=== PATIENT | female | born 1975 | race Caucasian/White ===

== ENCOUNTER 2023-07-15 08:26 | Outpatient (AMB) | payer BC, SELFPAY ==
[2023-07-15 08:41] VITALS: BP 126/70; PULSE 116; TEMP 36.6; O2SAT 98; BMI 27.1
--- NOTE | 2023-07-15 08:41 | AM.OFFWIN_ITS ---
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 Reports putting weight on it hurts the most. 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 [facility] Medical History (Updated 07/15/23 @ 09:18 by Anny Dubon NP) Left ankle pain Social History Patient Tobacco Use Status: Never used Tobacco Physical Exam Vital Signs: Last Vital Signs Temp 97.9 F 07/15/23 08:41 Pulse 116 H 07/15/23 08:41 BP 126/70 07/15/23 08:41 Pulse Ox 98 07/15/23 08:41 Oxygen Delivery Method Room Air 07/15/23 08:41 BMI result Body Mass Index 27.1 Const General: comfortable and no acute distress Orientation/consciousness: patient oriented x3 Neuro General: patient oriented x3, gait normal and moves all extremities Extrem Right lower extremity: normal to inspection Left lower extremity: full ROM and ankle Details: normal to inspection, no edema and normal ROM; no tenderness, no swelling and no ecchymosis; no edema Assessment & Plan Assessment & Plan (1) Left ankle pain: Code(s): M25.572 - Pain in left ankle and joints of left foot Plan - Xray of Ankle - Acetaminophen for pain relief. - IceHot - Rest Medications: New ibuprofen 600 mg PO Q6H PRN 20 tabs 0RF pain M25.572 - Pain in left ankle and joints of left foot cyclobenzaprine 10 mg PO BEDTIME 14 tabs 0RF M25.572 - Pain in left ankle and joints of left foot Coding Level of Care Code Est Pt Level 4 (02967) Diagnoses Left ankle pain M25.572 Time Spent (min) 20
== END 2023-07-15 09:30 | disposition home or self-care (01) ==
PROVIDERS: PCP Internal Medicine; Visit Provider Nurse Practitioner Family
DX: M25.572 Pain in left ankle and joints of left foot (principal)
CPT/HCPCS: 99214

== ENCOUNTER 2023-07-15 09:02 | Outpatient (REF) | payer BC, SELFPAY ==
--- NOTE | ~2023-07-15 | XR_ITS ---
EXAMINATION: XR ANKLE, LEFT CLINICAL INFORMATION: History of unspecified muscle and tendon and ankle and foot COMPARISON: None available. TECHNIQUE: AP, lateral, and mortise views of the left ankle. FINDINGS: No fracture. Alignment is anatomic. No erosions. Joint spaces are maintained. Large posterior plantar calcaneal spur. XR/XR ankle LT min 3V IMPRESSION: No acute bony abnormality. Large posterior plantar calcaneal spur.
== END 2023-07-15 09:03 | disposition home or self-care (01) ==
LOC: HO.HMGCX 09:02
PROVIDERS: PCP Internal Medicine; Visit Provider Nurse Practitioner Family
DX: S96.912A Strain of unspecified muscle and tendon at ankle and foot level, left foot, initial encounter (principal)
CPT/HCPCS: 73610

== ENCOUNTER 2024-05-04 09:42 | Emergency (ER) | payer BC, SELFPAY ==
--- NOTE | 2024-05-04 | ECG_ITS ---
Test Reason : CP Blood Pressure : */* mmHG Vent. Rate : 142 BPM Atrial Rate : 142 BPM P-R Int : 128 ms QRS Dur : 72 ms QT Int : 270 ms P-R-T Axes : 53 51 16 degrees QTcB Int : 415 ms Sinus tachycardia Nonspecific ST abnormality Abnormal ECG No previous ECGs available Referred By: Generic ED Physician Electronically Signed By: Hill Elliott
--- NOTE | ~2024-05-04 | XR_ITS ---
EXAMINATION: XR CHEST CLINICAL INFORMATION: chest pain COMPARISON: None available. TECHNIQUE: 2 views of the chest were obtained. FINDINGS: No consolidation, pleural effusion or pneumothorax. Cardiomediastinal silhouette is normal in size. Osseous structures are intact. XR/XR chest 2V IMPRESSION: No acute airspace disease. Normal x-ray. Electronically signed by: Negrito Carrion MD 05/04/2024 10:56 AM [facility]
[2024-05-04 09:56] VITALS: BP 164/117; PULSE 145; RESP 22; TEMP 36.1; O2SAT 97; BMI 28.5
[2024-05-04 10:43] LABS: Prothrombin Time 11.6 SEC (10.9-12.4)
[2024-05-04 10:45] LABS: Partial Thromboplastin Time 34.5 SEC (26.0-36.8)
[2024-05-04 11:00] LABS: Alanine Aminotransferase 28 U/L (0-31); Albumin Level 4.9 g/dL (3.5-5.0); Alkaline Phosphatase 65 U/L (39-117); Anion Gap 15 (12-20); Aspartate Amino Transferase 24 U/L (5-31); B Type Natriuretic Peptide < 10 pg/mL (<100); Bilirubin Total 0.3 mg/dL (0.0-1.0); Blood Urea Nitrogen 12 mg/dL (9-16); Carbon Dioxide 25 mmol/L (22-29); Chloride 106 mmol/L (96-108); Creatinine Clr Calc Pharmacy 71.6; Estimated Glomerular Filt Rate > 60; Glucose Random 127 mg/dL (60-115); Magnesium 1.8 mg/dL (1.6-2.6); Potassium 3.8 mmol/L (3.3-5.1); Sodium 142 mmol/L (135-145); Total Protein 8.5 g/dL (6.5-8.0)
[2024-05-04 11:05] LABS: Troponin-I High Sensitivity < 2.7 ng/L (<3.5-17.0)
--- NOTE | 2024-05-04 11:06 | ED.CHESTPAIN ---
HPI - Chest Pain General Chief Complaint: Chest Pain Stated Complaint: Chest burning, elevated heart rate Time Seen by Provider: 05/04/24 11:04 Source: patient, RN notes reviewed and old records reviewed Mode of arrival: ambulatory Limitations: no limitations History of Present Illness ED Provider: Alistair HPI narrative: 48-year-old female with past medical history significant for celiac disease presents for evaluation of palpitations. Patient reports that she has felt a burning in her chest for the last couple of days She thought it was related to heartburn as she has a history of this However today she reports that she went out to [facility] and her smart watch told her that her heart rate was fast. On arrival to the ED her heart rate was 146 She reports a mild burning sensation in her chest but otherwise denies any pain. She denies any shortness of breath Denies any leg swelling, history of blood clots, or recent travel No other complaints or concerns at this time Related Data Previous Rx's ?Medication ?Instructions ?Recorded cyclobenzaprine 10 mg tablet 10 mg PO BEDTIME #14 tabs 07/15/23 ibuprofen 600 mg tablet 600 mg PO Q6H PRN pain #20 tabs 07/15/23 carvedilol 6.25 mg tablet (Coreg) 6.25 mg PO Q12H #60 tabs 05/04/24 Allergies Allergy/AdvReac Type Severity Reaction Status Date / Time Penicillins Allergy Mild rash Verified 05/04/24 09:59 Sulfa (Sulfonamide Allergy Mild stomach Verified 05/04/24 09:59 Antibiotics) buring Review of Systems Constitutional: Constitutional: Denies body ache(s), Denies chills, Denies fatigue, Denies fever(s) and Denies headache(s) ENT: Denies headache(s) Cardiovascular: Cardiovascular: Denies rapid heart rate, Denies palpitations and Denies dyspnea Comments: burning sensation in chest Respiratory: Respiratory: Denies cough and Denies dyspnea Gastrointestinal: Gastrointestinal: Denies abdominal pain Neurologic: Denies headache(s) Endocrine: Endocrine: Denies fatigue and Denies palpitations [facility] Past Medical History Medical History (Updated 05/04/24 @ 11:56 by Anthony Sainz) Left ankle pain Social History Social History Patient Tobacco Use Status: Never used Tobacco Smoked in Last 30 Days: No Use of substances other than those prescribed or required for medical reasons: No Advance Directives: No Advance Directives Information Provided: Yes Do you have a plan to hurt others: No Plan Physical Exam Vital Signs: Vital Signs: Last Vital Signs Temp 98.5 F 05/04/24 12:05 Pulse 129 H 05/04/24 12:11 Resp 17 05/04/24 12:11 BP 170/105 H 05/04/24 12:11 Pulse Ox 97 05/04/24 12:11 O2 Del Method Room Air 05/04/24 12:11 BMI result Body Mass Index 28.5 Const: General: healthy appearing, comfortable, no acute distress, alert and awake Nutritional Appearance: well nourished Orientation/consciousness: patient oriented x3 HEENT: Head: Yes normocephalic and Yes atraumatic Neck: Neck: Yes full ROM Resp: Effort & Inspection: normal respiratory effort, able to speak in complete sentences, no audible wheezes and not labored Auscultation: clear to auscultation bilaterally Cardio: Rate: tachycardic Rhythm: regular rhythm GI: Inspection: No distended Palpation (GI): Soft to palpation, not firm, nontender, no guarding and not rigid Skin: General skin exam: elasticity normal Neuro: General: patient oriented x3 Cranial nerves: Yes Bilaterally intact EOM present Cognition (Neuro): normal cognition Course Reevaluation(s) Reevaluation #1: Patient's labs are relatively unremarkable, she did have a mild hemoconcentration but no evidence of CHRISSY. Her heart rate did improve with IV fluids. I discussed with Cardiology, Dr Elliott your meds Coreg 6.25 mg b.i.d.. Time: 13:31 Reevaluation #2: Patient's repeat blood pressure is 147/97 after treatment with Coreg. She is stable for discharge at this time Time: 15:03 Medications Administered Discontinued Medications Generic Name Dose Route Start Last Admin Trade Name Freq PRN Reason Stop Dose Admin Carvedilol 6.25 mg 05/04/24 13:29 05/04/24 13:56 Carvedilol 6.25 Mg Tablet PO 05/04/24 13:30 6.25 mg ONCE ONE Administration Protocol Sodium Chloride 1,000 mls @ 999 mls/hr 05/04/24 11:15 05/04/24 12:29 Ns IV 05/04/24 12:15 Infused .Q1H1M MARK Infusion Medical Decision Making Medical Decision Making [facility] Narrative: 40 old female presents for evaluation of palpitations with a burning sensation her chest. Her EKG showed Sinus tachycardia rate of 142 beats minute. Despite her tachycardia, the patient appears quite well. She denies any severe chest pain, shortness of breath. Plan for basic labs, we will add a D-dimer to evaluate for PE, TSH and T4 to evaluate for hyperthyroidism. The patient has no signs of infections to suggest sepsis. She was not appear to be dry or dehydrated. Drug screen is pending. We will treat with IV fluids Differential Diagnosis Differential Diagnoses: The differential diagnosis associated with the presentation includes Dehydration CHRISSY Hypovolemia Orthostasis PE Hyperthyroidism Lab Data [facility] Lab Attestation statement: I reviewed the patient's lab results. No leukocytosis or anemia. Normal platelet count. Random glucose of 127 but the patient is not a diabetic. 05/04/24 10:15 05/04/24 10:15 Labs: Lab Results 05/04/24 05/04/24 05/04/24 Range/Units 10:15 10:16 10:20 WBC 9.6 (4.8-10.8) X10*3/uL RBC 5.58 H (4.20-5.50) X10*6/uL Hgb 16.3 H (12.0-16.0) g/dl Hct 48.6 H (37.0-47.0) % MCV 87.1 (80.0-98.0) fL MCH 29.2 (27.0-33.0) pg MCHC 33.5 (31.0-35.0) g/dl RDW 12.3 (11.0-16.0) % Plt Count 262 (160-400) X10*3/uL MPV 11.7 (9.4-12.3) fL Immature Gran % (Auto) 0.3 (0.0-0.4) % Neut % (Auto) 76.3 H (45-73) % Lymph % (Auto) 18.8 L (20-40) % Sharkey % (Auto) 3.1 (2-11) % Eos % (Auto) 0.6 (0-4) % Baso % (Auto) 0.9 (0-2) % Lymph # (Auto) 1.8 (1.2-4.9) X10*3/uL Sharkey # (Auto) 0.3 (0.1-1.2) X10*3/uL Eos # (Auto) 0.1 (0.0-0.4) X10*3/uL Baso # (Auto) 0.1 (0.0-0.2) X10*3/uL Abs Immat Gran (auto) 0.03 (0.00-0.03) X10*3/uL Absolute Neuts (auto) 7.3 (2.0-8.3) x10*3/uL Absolute Nucleated RBC 0.000 (0.0-0.012) X10*3/uL Nucleated RBC % (auto) 0.0 (0.0-0.2) /100WBC PT 11.6 (10.9-12.4) SEC INR 1.0 (0.9-1.1) APTT 34.5 (26.0-36.8) SEC D-Dimer High Sensitivty < 150 NG/ML Sodium 142 (135-145) mmol/L Potassium 3.8 (3.3-5.1) mmol/L Chloride 106 (96-108) mmol/L Carbon Dioxide 25 (22-29) mmol/L Anion Gap 15 (12-20) BUN 12 (9-16) mg/dL Creatinine 0.92 (0.5-1.4) mg/dL Estim Creat Clear Calc 71.6 Estimated GFR > 60 Random Glucose 127 H (60-115) mg/dL Calcium 10.0 (8.4-10.2) mg/dL Magnesium 1.8 (1.6-2.6) mg/dL Total Bilirubin 0.3 (0.0-1.0) mg/dL AST 24 (5-31) U/L ALT 28 (0-31) U/L Alkaline Phosphatase 65 (39-117) U/L Troponin I High Sens < 2.7 (<3.5-17.0) ng/L B-Natriuretic Peptide < 10 (<100) pg/mL Total Protein 8.5 H (6.5-8.0) g/dL Albumin 4.9 (3.5-5.0) g/dL TSH 1.32 (0.32-4.0) uIU/mL Urine Opiates Screen (Not Detect) Ur Buprenorphine Scrn (Not Detect) ng/mL Ur Oxycodone Screen (Not Detect) ng/mL Urine Methadone Screen (Not Detect) ng/mL Urine Fentanyl Screen (Not Detect) Ur Barbiturates Screen (Not Detect) Ur Phencyclidine Scrn (Not Detect) Ur Amphetamines Screen (Not Detect) U Benzodiazepines Scrn (Not Detect) Urine Cocaine Screen (Not Detect) U Marijuana (THC) Screen (Not Detect) Influenza Type A (PCR) NEGATIVE (Negative) Influenza Type B (PCR) NEGATIVE (Negative) RSV RNA Qual (PCR) NEGATIVE (Negative) SARS-CoV-2 RNA (RT-PCR) NEGATIVE (Negative) 05/04/24 Range/Units 12:11 WBC (4.8-10.8) X10*3/uL RBC (4.20-5.50) X10*6/uL Hgb (12.0-16.0) g/dl Hct (37.0-47.0) % MCV (80.0-98.0) fL MCH (27.0-33.0) pg MCHC (31.0-35.0) g/dl RDW (11.0-16.0) % Plt Count (160-400) X10*3/uL MPV (9.4-12.3) fL Immature Gran % (Auto) (0.0-0.4) % Neut % (Auto) (45-73) % Lymph % (Auto) (20-40) % Sharkey % (Auto) (2-11) % Eos % (Auto) (0-4) % Baso % (Auto) (0-2) % Lymph # (Auto) (1.2-4.9) X10*3/uL Sharkey # (Auto) (0.1-1.2) X10*3/uL Eos # (Auto) (0.0-0.4) X10*3/uL Baso # (Auto) (0.0-0.2) X10*3/uL Abs Immat Gran (auto) (0.00-0.03) X10*3/uL Absolute Neuts (auto) (2.0-8.3) x10*3/uL Absolute Nucleated RBC (0.0-0.012) X10*3/uL Nucleated RBC % (auto) (0.0-0.2) /100WBC PT (10.9-12.4) SEC INR (0.9-1.1) APTT (26.0-36.8) SEC D-Dimer High Sensitivty NG/ML Sodium (135-145) mmol/L Potassium (3.3-5.1) mmol/L Chloride (96-108) mmol/L Carbon Dioxide (22-29) mmol/L Anion Gap (12-20) BUN (9-16) mg/dL Creatinine (0.5-1.4) mg/dL Estim Creat Clear Calc Estimated GFR Random Glucose (60-115) mg/dL Calcium (8.4-10.2) mg/dL Magnesium (1.6-2.6) mg/dL Total Bilirubin (0.0-1.0) mg/dL AST (5-31) U/L ALT (0-31) U/L Alkaline Phosphatase (39-117) U/L Troponin I High Sens (<3.5-17.0) ng/L B-Natriuretic Peptide (<100) pg/mL Total Protein (6.5-8.0) g/dL Albumin (3.5-5.0) g/dL TSH (0.32-4.0) uIU/mL Urine Opiates Screen Not Detected (Not Detect) Ur Buprenorphine Scrn Not Detected (Not Detect) ng/mL Ur Oxycodone Screen Not Detected (Not Detect) ng/mL Urine Methadone Screen Not Detected (Not Detect) ng/mL Urine Fentanyl Screen Not Detected (Not Detect) Ur Barbiturates Screen Not Detected (Not Detect) Ur Phencyclidine Scrn Not Detected (Not Detect) Ur Amphetamines Screen Not Detected (Not Detect) U Benzodiazepines Scrn Not Detected (Not Detect) Urine Cocaine Screen Not Detected (Not Detect) U Marijuana (THC) Screen POSITIVE H (Not Detect) Influenza Type A (PCR) (Negative) Influenza Type B (PCR) (Negative) RSV RNA Qual (PCR) (Negative) SARS-CoV-2 RNA (RT-PCR) (Negative) Independent Interpretation I performed an independent interpretation of an: EKG (Sinus tachycardia rate of 142 beats minute.) Discharge Plan Discharge Clinical Impression: Sinus tachycardia Patient Disposition: Home, Self-Care Instructions: Tachycardia (ED) Additional Instructions: Your workup in the ER today was reassuring. Your heart rate was quite high but was considered a ?regular rhythm. Cardiology recommends that you start Coreg 6.25 mg b.i.d. You should discontinue this medication if your heart rate is lower than 60 while you are awake, if you are dizzy or lightheaded Follow-up with cardiology at the number provided, Dr. Elliott Prescriptions: New carvedilol [Coreg] 6.25 mg tablet 6.25 mg PO Q12H Qty: 60 0RF Rx Instructions: must administer with a meal/food No Action ibuprofen 600 mg tablet 600 mg PO Q6H PRN (Reason: pain) Qty: 20 0RF cyclobenzaprine 10 mg tablet 10 mg PO BEDTIME Qty: 14 0RF Referrals: Hill Elliott MD [Physician] - (sinus tachycardia) Print Language: Luxembourgish
[2024-05-04 11:14] LABS: Thyroid Stimulating Hormone 1.32 uIU/mL (0.32-4.0)
[2024-05-04 11:15] LABS: Influenza A PCR NEGATIVE (Negative); Influenza B PCR NEGATIVE (Negative); Resp Syncy Virus RNA Qual PCR NEGATIVE (Negative); SARS COV2 PCR INHOUSE NEGATIVE (Negative)
[2024-05-04] MEDS: 0.9 % Sodium Chloride 1,000 ML 999 ML IV (11:25)
[2024-05-04 11:34] LABS: D Dimer High Sensitivity < 150 NG/ML
[2024-05-04 12:05] VITALS: BP 185/104; PULSE 131; RESP 18; TEMP 36.9; O2SAT 98
--- OUTSIDE RECORDS SUMMARY | 2024-05-04 12:07 | XMS_ITS | Clinical Summary ---
Author Organization [facility] [address] [facility] Address [address], [place] Phone Care Team Providers Care Manager Music Name Role Phone Claus Khan MD Primary Care Provider [phone] Allergies Active Allergy Reactions Criticality Noted Date Comments Gluten 05/03/2016 Levofloxacin 09/16/2015 Other Reaction(s): Rash/Dermatitis Penicillins 02/09/2014 Other Reaction(s): Rash/Dermatitis Sulfa (Sulfonamide Antibiotics) GI intolerance 02/09/2014 Medications Medication Sig Dispensed Refills Start Date End Date Status pantoprazole (PROTONIX) 40 mg packet Take 40 mg by mouth daily. Take in am on empty stomach, wait 30 mins and then eat to activate the medication 06/28/2020 Active cetirizine (ZyrTEC) 10 mg tablet Take 10 mg by mouth daily. Active omeprazole magnesium (PRILOSEC OTC ORAL) Take by mouth. A ctive Active Problems Problem Noted Date Diagnosed Date Atypical chest pain 02/25/2024 Change in bowel habits 02/25/2024 GERD (gastroesophageal reflux disease) 4 Stress 02/25/2024 Gastroesophageal reflux disease without esophagi tis 12/29/2018 BRCA2 positive 03/21/2016 Anxiety 03/13/2014 Celiac sprue 02/09/2014 Encounters Date Type Department Care Team Description 05/04/2024 Telephone Adult Medicine [facility] [address] [place] [id number] Claus Khan MD Rapid Heart Rate from Last 3 Months Immunizations Name Administration Dates Next Due Moderna SARS-CoV-2 COVID-19, mRNA, LNP-S, preservative free 06/14/2020,05/16/2020 Tdap Tetanus diptheria acell ular pertussis (Boostrix; Adacel) 7yo and older 05/26/2010 Surgical History Surgery Date Site/Laterality Comments OTHER SURGICAL HISTORY 1999 PROCEDURE: [place] EXC TUMOR SOFT TISS FACE&SCALP SUBFASCIAL 2 CM/>; COMMENT: left protestant, benign facial tumor ESOPHAGOGASTRODUODENOSCOPY PROCEDURE: [place] EGD TRANSORAL BIOPSY SINGLE/MULTIPLE; COMMENT: Performed in 2016 with colonoscopy COLONOSCOPY PROCEDURE: HISTORICAL COLONOSCOPY; COMMENT: Performed with EGD in 2017 Medical History Medical History Date Comments Celiac sprue 02/09/2014 DX:Celiac sprue Anxiety 03/13/2014 DX:Anxiety History of colonoscopy 05/30/2016 DX:Histor y of colonoscopy; COMMENT: negative GERD (gastroesophageal reflux disease) DX:GERD (gastroesophageal reflux disease) Atypical chest pain DX:Atypical chest pain Stress DX:Stress Change in bowel habits DX:Change in bowel habits Family History Medical History Relation Name Comments Diabetes Brother No Known Problems Daughter Diabetes Father CABG, kidney di sease Stroke Maternal Grandfather No Known Problems Maternal Grandmother Colon polyps Mother ? cumulative to anisha/age at dx No Known Problems Other Colon cancer Paternal Grandfather No Known Problems Paternal Grandmother Other: lupus Sister 1 Diabetes Sister 2 11 colon polyps at 47 Colon polyps Sister 3 #14, precancero us Breast cancer Neg Hx Ovarian cancer Neg Hx Relation Name Status Comments Brother Daughter Father Maternal Grandfather Maternal Grandmother Mother Other Paternal Grandfather Paternal Grandmother Sister 1 Sister 2 Sister 3 Social History Tobacco Use Types Packs/Day Years Used Date Smoking Tobacco: Former Cigarettes 0.5 28.6 0 04/01/1987 - 10/31/2015 Smokeless Tobacco: Never Alcohol Use Standard Drinks/Week Comments Yes 0 (1 standard drink = 0.6 oz pur e alcohol) Sex and Gender Information Value Date Recorded Sex Assigned at Female 04/16/2024 1:13 PM EST Gender Identity Female 04/16/2024 1:13 PM EST Sexual Orientation Lesbian or Miller 04/16/2024 1: 13 PM EST Obstetrics History Plan of Treatment Upcoming Encounters Date Type Department Care Team (Late st Contact Info) Description 06/25/2024 7:40 AM EDT Appointment Radiology Department [address] [phone] Health Maintenance Due Date Last Done Comments Hepatitis B Vaccines (1 of 3 - 19+ 3-dose series) 1994 Cervical Cancer Screening: Pap Smear 11/28/2018 11/29/2015, 11/29/2015 DTaP,Tdap,and Td Vaccines (2 - Td or Tdap) 05/26/2020 05/26/2010 Colorectal Cancer Screening: Colonoscopy 03/10/2022 Depression Screening 03/10/2022 HIV Screening 03/10/2022 Hepatitis C Screening 03/10/2022 Social Influencers of Health Screening 03/10/2022 COVID-19 Vaccine ( season) 2023 06/14/2020, 05/16/2020 Influenza Vaccine (#1) 2023 Breast Cancer Screening 06/12/2025 06/13/19, 06/11/2022, 03/27/2021, Additional history exists HIB Vaccines Aged Out No longer eligi ble based on patient's age to complete this topic HPV Vaccines Aged Out No longer eligi ble based on patient's age to complete this topic Hepatitis A Vaccines Aged Out No long er eligible based on patient's age to complete this topic IPV Vaccines Aged Out No longer eligi ble based on patient's age to complete this topic MMR Vaccines Aged Out No longer eligi ble based on patient's age to complete this topic Meningococcal ACWY Vaccine Aged Out N o longer eligible based on patient's age to complete this topic Pneumococcal Vaccine: Pediatrics (0 to 5 Years) and At-Risk Patients (6 to 64 Years) Aged Out No longer eligible based on patient's age to complete this topic RSV Immunization Patients Under 20 months Aged Out No longer eligible based on patient's age to complete this topic Varicella Vaccines Aged Out No longer eligible based on patient's age to complete this topic Procedures Procedure Name Priority Date/Time Associated Diagnosis Comments SCREENING MAMMOGRAPHY BI 2-VIEW BREAST INC CAD Routine 06/13/2023 4:54 PM EDT Encounter for screening mammogram for malignant neoplasm of breast HM HPV Routine 11/29/2015 from Last 3 Months or Most Recently Relevant to Health Maintenance Results * SCREENING MAMMOGRAPHY BI 2-VIEW BREAST INC CAD (06/13/2023 4:54 PM EDT) Anatomical Region Laterality Modality Radiographic Chelsea ging 06/11/2022 4:53 PM EDT Narrative 06/14/2023 11:02 AM EDT This is a summary report. The complete report is available in the patient's medical record. If you cannot access the medical record, please contact the sending organization for a detailed fax or copy. Full field digital screening tomosynthesis mammography, reviewed with CAD and compared to previous mammograms dating back to 03/05/2019 and most recent of 06/12/1999. The breast tissue is heterogeneously dense, limiting sensitivity. No suspicious mass, architectural distortion or suspicious calcifications are identified. IMPRESSION: : Dense breast tissue, limiting the sensitivity of mammography. No mammographic evidence of malignancy. BIRADS 1-Negative; N. 5 year breast cancer risk assessment N/A Lifetime breast cancer risk assessment N/A Breast cancer risk category Low (<15%) Procedure Note Digna Vargas MD - 11/18/2023 This is a summary report. The complete report is available in thepatient's medical record. If you cannot access the medical record, pleasecontact the sending organization for a detailed fax or copy. Full field digital screening tomosynthesis mammography, reviewed with CADand compared to previous mammograms dating back to 03/05/2019 and mostrecent of 06/12/1999. The breast tissue is heterogeneously dense, limitingsensitivity. No suspicious mass, architectural distortion or suspiciouscalcifications are identified. IMPRESSION: : Dense breast tissue, limiting the sensitivity of mammography. Nomammographic evidence of malignancy. BIRADS 1-Negative; N. 5 year breast cancer risk assessment N/A Lifetime breast cancer risk assessment N/A Breast cancer risk category Low (<15%) Claus Khan MD IMG XR PROCEDURES * Cervical Cancer Screening: HPV (11/29/2015) Cervical Cancer Screening: HPV Negative, Abstracted Historical Provider MD BHAVIK Ramirez from Last 3 Months or Most Recently Relevant to Health Maintenance Care Teams Manager Music Relationship Specialty Start Date End Date Claus Khan MD [address] [place] [id number] PCP - General Internal Medicine 02/03/14
--- OUTSIDE RECORDS SUMMARY | 2024-05-04 12:07 | XMS_ITS | Encounter Summary ---
Author Organization [facility] Address [address] [place] [address] Care Team Providers Care Hearing Aid Assembly Supervisor Name Role Phone Claus Khan MD Primary Care Provider [phone] Reason for Visit * Reason Onset Date Comments Rapid Heart Rate 05/04/2024 Encounter Details Date Type Department Care Team ([facility] Contact Info) Description 05/04/2024 Telephone Adult Medicine [address] [phone] Claus Khan MD [address] [place] [id number] Rapid Heart Rate Social History Tobacco Use Types Packs/Day Years [...] or Miller 04/16/2024 1: 13 PM EST documented as of this encounter Progress Notes * Henna Cramer RN - 05/04/2024 9:20 AM EST Pt reports increased HR (130's). + CP - Pt reports burning in her chest. Pt advised to go to the ED [facility]. Pt verbalized understanding and agreed with plan. * Anny Clarke - 05/04/2024 9:16 AM EST Patient call requires triage: Symptoms patient is presenting: c/o tachycardia at 130 bpm 1.5 hrs after shoveling How long has patient had these symptoms?: 1.5 hrs For ALL patients calling to schedule any appointment (routine, sick visit, follow up, consult, etc.) in the outpatient setting please ask the following questions: Do you have fever of higher than 101, sore throat with difficulty swallowing or severe shortness ofbreath? no If YES to any of these above symptoms, send a message to triage and do not book. Red dot. If no, an audio or video visit should be booked. Have you had close contact with someone with Coronavirus in the last 14 days? no Have you traveled abroad? no Have you traveled recently to another state outside of [place], [place], [place], [place], [place], [place], [place]? no o If yes, did you quarantine for 14 days or have a negative covid test? no If yes to any of the above, patient is not to be scheduled in office until after 14 day quarantine or negative covid test. If pain or injury related was it due to an accident at work or from a motor vehicle accident? If yes, date of accident/Injury: No If yes, gather 3rd alliance party insurance information Third Democrat Information: not applicable PCP: Claus Khan MD Payor: [facility] / Plan: [facility] H[facility] / Product Type: *No Product type* / documented in this encounter Plan of Treatment Upcoming Encounters Date Type Department Care Team (Late st Contact Info) Description 06/25/2024 7:40 AM EDT Appointment Radiology Department - [address] [phone] documented as of this encounter Visit Diagnoses Not on filedocumented in this encounter Care Teams Hearing Aid Assembly Supervisor Relationship Specialty Start Date End Date Claus Khan MD [address] [place] [id number] PCP - General Internal Medicine 02/03/14 documented as of this encounter
[2024-05-04 12:10] VITALS: BP 165/94; PULSE 129; RESP 17
[2024-05-04 12:11] VITALS: BP 170/105; PULSE 129; RESP 17; O2SAT 97
[2024-05-04 12:27] LABS: Amphetamine Screen Urine Not Detected (Not Detect); Barbiturates, Urine Not Detected (Not Detect); Benzodiazepines Screen Urine Not Detected (Not Detect); Buprenorphine Scr Not Detected (Not Detect); Cannabinoid Screen Urine POSITIVE (Not Detect); Cocaine Screen Urine Not Detected (Not Detect); Fentanyl, urine Not Detected (Not Detect); Methadone Screen, Urine Not Detected (Not Detect); Opiate Screen Urine Not Detected (Not Detect); Oxycodone Screen Urine Not Detected (Not Detect); Phencyclidine Screen Urine Not Detected (Not Detect)
[2024-05-04 13:08] LABS: Basophils Absolute Auto 0.1 X10*3/uL (0.0-0.2); Basophils Percent Auto 0.9 % (0-2); Eosinophils Absolute Auto 0.1 X10*3/uL (0.0-0.4); Eosinophils Percent Auto 0.6 % (0-4); Hematocrit 48.6 % (37.0-47.0); Hemoglobin 16.3 g/dl (12.0-16.0); Imm Gran Abs Auto 0.03 X10*3/uL (0.00-0.03); Imm Gran Pct Auto 0.3 % (0.0-0.4); Lymphocytes Absolute Auto 1.8 X10*3/uL (1.2-4.9); Lymphocytes Percent Auto 18.8 % (20-40); MANUAL DIFF FLAG NO; Mean Corpuscular HGB Conc 33.5 g/dl (31.0-35.0); Mean Corpuscular Hemoglobin 29.2 pg (27.0-33.0); Mean Corpuscular Volume 87.1 fL (80.0-98.0); Mean Platelet Volume 11.7 fL (9.4-12.3); Monocytes Absolute Auto 0.3 X10*3/uL (0.1-1.2); Monocytes Percent Auto 3.1 % (2-11); Neutrophils Absolute Auto 7.3 x10*3/uL (2.0-8.3); Neutrophils Percent Auto 76.3 % (45-73); Platelet Count 262 X10*3/uL (160-400); Red Blood Count 5.58 X10*6/uL (4.20-5.50); Red Cell Distribution Width 12.3 % (11.0-16.0); White Blood Count 9.6 X10*3/uL (4.8-10.8)
[2024-05-04] MEDS: carvediloL 6.25 MG TABLET PO (13:56)
[2024-05-04 15:14] VITALS: BP 149/110; PULSE 112; RESP 19; TEMP 37.3; O2SAT 95
[2024-05-04 15:16] VITALS: BP 149/110; PULSE 112; RESP 19; TEMP 37.3; O2SAT 95
[2024-05-04 15:17] LABS: T4 Thyroxine 9.8 ug/dL (4.5-12.0)
== END 2024-05-04 15:22 | disposition home or self-care (01) ==
PROVIDERS: Physician Assistant; Emergency Provider Emergency Medicine; PCP Internal Medicine
DX: R00.0 Tachycardia, unspecified (principal); R07.89 Other chest pain; R06.02 Shortness of breath; Z51.81 Encounter for therapeutic drug level monitoring; Z03.818 Encounter for observation for suspected exposure to other biological agents ruled out; Z79.899 Other long term (current) drug therapy
CPT/HCPCS: 0241U; 36415; 71046; 80053; 80307; 83735; 83880; 84436; 84443; 84484; 85025; 85379; 85610; 85730; 93005; 96360; 99284; 99285

== ENCOUNTER → 2024-05-04 09:52 | Outpatient (BNV) | payer BC, SELFPAY | PROVIDERS: Emergency Provider Emergency Medicine; PCP Internal Medicine; Visit Provider Internal Medicine Cardiovascular Disease | DX: R94.31 Abnormal electrocardiogram [ECG] [EKG] (principal) | CPT/HCPCS: 93010 ==

== ENCOUNTER → 2024-05-04 10:42 | Outpatient (BNV) | payer BC, SELFPAY | PROVIDERS: PCP Internal Medicine; Visit Provider Radiology Diagnostic Radiology | DX: R07.9 Chest pain, unspecified (principal) | CPT/HCPCS: 71046 ==

== ENCOUNTER 2024-05-06 01:00 | Emergency (ER) | payer BC, SELFPAY ==
[2024-05-06] VITALS (8 sets, daily range): BP systolic 136–160; BP diastolic 91–108; PULSE 94–125; RESP 14–20; TEMP 35.5–37.1; O2SAT 93–98; BMI 29.2
--- NOTE | 2024-05-06 | ECG_ITS ---
Test Reason : CP Blood Pressure : */* mmHG Vent. Rate : 94 BPM Atrial Rate : 94 BPM P-R Int : 122 ms QRS Dur : 82 ms QT Int : 344 ms P-R-T Axes : 51 49 13 degrees QTcB Int : 430 ms Sinus rhythm with marked sinus arrhythmia Otherwise normal ECG When compared with ECG of 04-May-2024 09:52, Vent. rate has decreased by 48 bpm Referred By: Generic ED Physician Electronically Signed By: Hill Elliott
[2024-05-06 01:42] LABS: Basophils Absolute Auto 0.1 X10*3/uL (0.0-0.2); Basophils Percent Auto 0.7 % (0-2); Eosinophils Absolute Auto 0.2 X10*3/uL (0.0-0.4); Eosinophils Percent Auto 1.3 % (0-4); Hematocrit 45.5 % (37.0-47.0); Hemoglobin 15.9 g/dl (12.0-16.0); Imm Gran Abs Auto 0.04 X10*3/uL (0.00-0.03); Imm Gran Pct Auto 0.3 % (0.0-0.4); Lymphocytes Absolute Auto 2.7 X10*3/uL (1.2-4.9); Mean Corpuscular HGB Conc 34.9 g/dl (31.0-35.0); Mean Corpuscular Hemoglobin 30.1 pg (27.0-33.0); Mean Platelet Volume 11.5 fL (9.4-12.3); Monocytes Absolute Auto 0.4 X10*3/uL (0.1-1.2); Monocytes Percent Auto 3.4 % (2-11); Neutrophils Absolute Auto 9.4 x10*3/uL (2.0-8.3); Neutrophils Percent Auto 73.3 % (45-73); PLT CLUMP 1; Red Blood Count 5.29 X10*6/uL (4.20-5.50); Red Cell Distribution Width 12.3 % (11.0-16.0); SCAN SMEAR FLAG 1
[2024-05-06 01:43] LABS: MANUAL DIFF FLAG NO; White Blood Count 12.8 X10*3/uL (4.8-10.8)
[2024-05-06 01:52] LABS: Platelet Count 294 X10*3/uL (160-400)
[2024-05-06 02:02] LABS: Alanine Aminotransferase 23 U/L (0-31); Albumin Level 4.6 g/dL (3.5-5.0); Anion Gap 17 (12-20); Aspartate Amino Transferase 41 U/L (5-31); Bilirubin Total 0.5 mg/dL (0.0-1.0); Blood Urea Nitrogen 17 mg/dL (9-16); Calcium 9.9 mg/dL (8.4-10.2); Carbon Dioxide 20 mmol/L (22-29); Chloride 107 mmol/L (96-108); Creatinine Clr Calc Pharmacy 76.6; Estimated Glomerular Filt Rate > 60; Glucose Random 116 mg/dL (60-115); Potassium 4.2 mmol/L (3.3-5.1); Sodium 140 mmol/L (135-145); Total Protein 8.8 g/dL (6.5-8.0); Troponin-I High Sensitivity < 2.7 ng/L (<3.5-17.0)
[2024-05-06 02:12] LABS: Alkaline Phosphatase 61 U/L (39-117)
--- NOTE | 2024-05-06 06:29 | ED_ITS ---
HPI - General Adult General Chief complaint: General Medical Stated complaint: tachy + diarrhea after new meds Time Seen by Provider: 05/06/24 06:20 Source: patient Mode of arrival: ambulatory Limitations: no limitations History of Present Illness ED Provider: Dr. Tamy Martin HPI narrative: Patient comes to the emergency room complaining of nausea vomiting and diarrhea. Patient states that she has had an increased heart rate, got worse with the N/V,D. However, 2 days ago, patient was seen here in the emergency room for palpitations that tachycardia. A cardiology consult was obtained, patient was started on Coreg 6.25 mg b.i.d.. Patient denies any chest pain or shortness of breath. Patient is feeling very nauseous Related Data Previous Rx's ?Medication ?Instructions ?Recorded cyclobenzaprine 10 mg tablet 10 mg PO BEDTIME #14 tabs 07/15/23 ibuprofen 600 mg tablet 600 mg PO Q6H PRN pain #20 tabs 07/15/23 carvedilol 6.25 mg tablet (Coreg) 6.25 mg PO Q12H #60 tabs 05/04/24 Allergies Allergy/AdvReac Type Severity Reaction Status Date / Time Penicillins Allergy Mild rash Verified 05/06/24 01:10 Sulfa (Sulfonamide Allergy Mild stomach Verified 05/06/24 01:10 Antibiotics) buring Review of Systems 2 Review of Systems: Constitutional : No Weight loss, No Fever, No Chills, No Night Sweats, No Fatigue, No Malaise ENT/Mouth : No Hearing loss, No Ear Pain, No Nasal Congestion, No Sinus Pain, No Hoarseness, No sore throat, No Rhinorrhea, No Swallowing Difficulty Eyes: No Eye Pain, No Swelling, No Redness, No Foreign Body, No Discharge, No Vision Changes Cardiovascular : No Chest Pain, No SOB, No Dyspnea on Exertion, No Orthopnea, No Edema, complaining of Palpitations Respiratory : No Cough, No Sputum, No Wheezing, No Smoke Exposure, No Dyspnea Gastrointestinal : Complaining of nausea vomiting and diarrhea, No Constipation, No abdominal Pain, No Hematochezia, No Melena Genitourinary : no irregular bleeding, No Dysuria, No Urinary Frequency, No Hematuria, No Urinary Incontinence, No Urgency, No Flank Pain, No Urinary Flow Changes, No Hesitancy Musculoskeletal : No joint pain, No Myalgias, No Joint Swelling Skin : No Skin Lesions, No rash Neuro : No Weakness, No Numbness, No Paresthesias, No Loss of Consciousness, No Dizziness, No Headache Psych : No Anxiety/Panic, No Depression, No SI/HI/AH/VH, No Social Issues, Heme/Lymph: No Bruising, No Bleeding,No Lymphadenopathy Endocrine : No Polyuria, No Polydipsia, No Temperature Intolerance [facility] Past Medical History Medical History Left ankle pain Social History Social History Alcohol intake: never Patient Tobacco Use Status: Never used Tobacco Smoked in Last 30 Days: No Substance Use Type: Marijuana Last Used Substance: Days (ago) Advance Directives: No Advance Directives Information Provided: Yes Do you have a plan to hurt others: No Plan Patient : No Physical Exam ED Vital Signs: Vital Signs - 24 hr 05/06/24 01:08 05/06/24 04:53 05/06/24 06:19 Temperature 96 F L 98.8 F 98.5 F Pulse Rate 107 H 118 H 125 H Respiratory Rate 20 16 14 Blood Pressure 146/98 H 160/108 H 136/102 H Pulse Oximetry 98 93 93 Oxygen Delivery Method Room Air Room Air Room Air BMI result Body Mass Index 29.2 Const Other: Appearance: Alert. Oriented X3. Looks uncomfortable Eyes: Pupils equal, round and reactive to light. ENT: Pharynx normal. Neck: Normal inspection. Neck supple. No lymph nodes noted. No crepitus CVS: Normal heart rate and rhythm. Pulses normal. Normal S1 and S2 Respiratory: No respiratory distress. Breath sounds normal. No Wheezing. No rales Abdomen: Soft and nontender. No rigidity. No distention. Actively vomiting Skin: Skin warm and dry. Normal skin color. Normal skin turgor. Extremities: No lower extremity edema. No Lacerations. No Rash Neuro: Oriented X 3. No motor deficit. No sensory deficit. Moving all extremities. No slurred speech. CN 2 through 12 grossly intact Psych: calm, cooperative, normal affect Course Course Course Narrative: Patient receiving IV fluids, Zofran, morphine for abdominal discomfort. Medical Decision Making Medical Decision Making [facility] Narrative: My interpretation of labs: Patient's white blood cell count 12.8, likely reactive leukocytosis. Chemistry does not show any significant electrolyte abnormality. Troponin negative I discussed with the patient that we will re-evaluate her after the IV fluids. If patient continues being tachycardic after IV hydration, patient's Coreg might need to be readjusted to a higher dose Sign out given to my colleague Dr. Lucero Lab Data 05/06/24 01:23 05/06/24 01:23 Labs: Lab Results 05/06/24 Range/Units 01:23 WBC 12.8 H (4.8-10.8) X10*3/uL RBC 5.29 (4.20-5.50) X10*6/uL Hgb 15.9 (12.0-16.0) g/dl Hct 45.5 (37.0-47.0) % MCV 86.0 (80.0-98.0) fL MCH 30.1 (27.0-33.0) pg MCHC 34.9 (31.0-35.0) g/dl RDW 12.3 (11.0-16.0) % Plt Count 294 (160-400) X10*3/uL MPV 11.5 (9.4-12.3) fL Immature Gran % (Auto) 0.3 (0.0-0.4) % Neut % (Auto) 73.3 H (45-73) % Lymph % (Auto) 21.0 (20-40) % [place] % (Auto) 3.4 (2-11) % Eos % (Auto) 1.3 (0-4) % Baso % (Auto) 0.7 (0-2) % Lymph # (Auto) 2.7 (1.2-4.9) X10*3/uL [place] # (Auto) 0.4 (0.1-1.2) X10*3/uL Eos # (Auto) 0.2 (0.0-0.4) X10*3/uL Baso # (Auto) 0.1 (0.0-0.2) X10*3/uL Abs Immat Gran (auto) 0.04 H (0.00-0.03) X10*3/uL Absolute Neuts (auto) 9.4 H (2.0-8.3) x10*3/uL Absolute Nucleated RBC 0.000 (0.0-0.012) X10*3/uL Nucleated RBC % (auto) 0.0 (0.0-0.2) /100WBC Sodium 140 (135-145) mmol/L Potassium 4.2 (3.3-5.1) mmol/L Chloride 107 (96-108) mmol/L Carbon Dioxide 20 L (22-29) mmol/L Anion Gap 17 (12-20) BUN 17 H (9-16) mg/dL Creatinine 0.87 (0.5-1.4) mg/dL Estim Creat Clear Calc 76.6 Estimated GFR > 60 Random Glucose 116 H (60-115) mg/dL Calcium 9.9 (8.4-10.2) mg/dL Total Bilirubin 0.5 (0.0-1.0) mg/dL AST 41 H (5-31) U/L ALT 23 (0-31) U/L Alkaline Phosphatase 61 (39-117) U/L Troponin I High Sens < 2.7 (<3.5-17.0) ng/L Total Protein 8.8 H (6.5-8.0) g/dL Albumin 4.6 (3.5-5.0) g/dL Critical Care Time Critical Care Time Critical Care Time: Yes Total Critical Care Time: 45 Attestation: I have personally provided critical care time. Time includes review of lab data, radiology results, discussion with consultants, and monitoring for potential decompensation. Intervention performed as documented. Discharge Plan Discharge Clinical Impression: Nausea vomiting and diarrhea, Dehydration, Tachycardia Patient Disposition: Still a Patient Prescriptions: No Action carvedilol [Coreg] 6.25 mg tablet 6.25 mg PO Q12H Qty: 60 0RF Rx Instructions: must administer with a meal/food ibuprofen 600 mg tablet 600 mg PO Q6H PRN (Reason: pain) Qty: 20 0RF cyclobenzaprine 10 mg tablet 10 mg PO BEDTIME Qty: 14 0RF Print Language: Thai
[2024-05-06] MEDS: Loperamide HCl 2 MG CAPSULE 4 MG PO (07:06)
[2024-05-06] MEDS: ondansetron HCL 4 MG/2 ML VIAL IVPUSH (07:06)
[2024-05-06] MEDS: 0.9 % Sodium Chloride 2,000 ML 999 ML IVCONT (07:16)
--- NOTE | 2024-05-06 07:17 | PC.NURSE ---
Assumed care of pt at 0700. Pt resting in bed quietly, a/ox3, respirations even and unlabored, no increased wob/sob, s1 and s2 heard, sinus tach on director of psychology, HR- 110s to 120s, MD aware of tachycardia. Pt states she did not take her morning Carvedilol. Denies CP/palpitations. Pt endorsing nausea/diarrhea, denies any pain. 22g IV R wrist placed and medicated per MAY. Call scanlon within reach, all needs met at this time.
[2024-05-06 07:42] LABS: C Reactive Protein < 0.04 mg/dL (< or = 0.50); Lipase 46 U/L (8-78)
[2024-05-06 08:03] LABS: Influenza A PCR NEGATIVE (Negative); Influenza B PCR NEGATIVE (Negative); Resp Syncy Virus RNA Qual PCR NEGATIVE (Negative); SARS COV2 PCR INHOUSE NEGATIVE (Negative)
[2024-05-06] MEDS: carvediloL 6.25 MG TABLET PO (08:51)
[2024-05-06 10:33] LABS: D Dimer High Sensitivity < 150 NG/ML
== END 2024-05-06 10:52 | disposition home or self-care (01) ==
PROVIDERS: Emergency Medicine; Emergency Provider Emergency Medicine; PCP Internal Medicine
DX: R00.0 Tachycardia, unspecified (principal); E86.0 Dehydration; R11.2 Nausea with vomiting, unspecified; R07.9 Chest pain, unspecified; R19.7 Diarrhea, unspecified; Z03.818 Encounter for observation for suspected exposure to other biological agents ruled out
CPT/HCPCS: 0241U; 36415; 80053; 83690; 84484; 85025; 85379; 86140; 93005; 96361; 96374; 99284; 99285; J2405

== ENCOUNTER 2024-08-19 08:42 | Outpatient (AMB) | payer BC, SELFPAY ==
--- NOTE | 2024-08-19 08:57 | A.OFFVIS_ITS ---
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, tachycardia Intake Note: New patient dx palpitations and tachycardia with ekg had holter and echo already has been dealing with the palpitations and high heart rate since 2019 Straightening Machine Operator Required: No Allergies Penicillins Allergy (Mild, Verified 05/06/24 01:10) rash Sulfa (Sulfonamide Antibiotics) Allergy (Mild, Verified 05/06/24 01:10) stomach buring Medication List - Last Reconciled 08/19/24 by Wagner Ruiz MD carvedilol (Coreg) 6.25 mg PO Q12H cyclobenzaprine 10 mg PO BEDTIME ibuprofen 600 mg PO Q6H PRN omeprazole magnesium (Prilosec) 40 mg PO DAILY HPI Comments Details: Nicol was referred here for evaluation of cardiovascular disease. She is a 49 year female who has prior history of anxiety. In April after snow shoveling she is not feeling well and noted fast heart rate and dizziness and went to the emergency room. In the emergency room she was noted to be hypertensive as well as having sinus tachycardia. No arrhythmias were detected. After adequate blood work and hydration she was released home on carvedilol therapy which she has been taking since then. Since then she had an echocardiogram done at an outside facility with shows overall normal structure of the heart. She also had a Holter monitor which overall shows no significant tachycardia with rare PACs and PVCs with short runs of palpitation. One of the symptoms reported during her Holter monitor where correlated with short episode of possible atrial tachycardia at 130 beats per minute. She is referred here for further evaluation. She said while she was wearing the Holter monitor she did not do much activity. However with a smart watch she is noticing that when she tries to exercise a little bit her heart rate is elevated. She remains very anxious about her cardiovascular condition in his anxious in general. She denied any significant smoking, ex-smoker. She denies any significant caffeine or alcohol intake. She has weaned herself off caffeine. She has strong family history of premature coronary artery disease in her dad who had a quadruple bypass at age 59 and her sister who suddenly at age 59. She says she drinks about 6 bottles of water every day. She denies any lightheadedness, syncope. She does not measure blood pressure usually at home. She says she has not been back to work since April for unclear reasons. [facility] Medical History Left ankle pain Surgical History Hx of excision of tumor of brain meninges Family History Father Lung cancer CAD (coronary artery disease) Mother No problems noted. Sister CAD (coronary artery disease) Brother Stroke Social History Alcohol intake: never Patient Tobacco Use Status: Never used Tobacco Substance Use Type: Marijuana Review of Systems Const Denies chills, Reports daytime sleepiness, Denies fatigue, Denies fever(s), Denies frequent falls, Denies poor appetite, Denies snoring, Denies stops breathing during sleep, Denies weakness, Reports weight gain and Denies weight loss Eyes Denies loss of vision ENT Reports dizziness and Denies hearing loss Card Reports chest pain, Denies claudication, Denies leg edema, Reports lightheadedness, Reports palpitations, Reports dyspnea, Reports dyspnea on exertion and Denies orthopnea Resp Denies cough, Denies excessive phlegm production, Reports dyspnea, Reports dyspnea on exertion, Denies snoring and Denies wheezing GI Denies abdominal pain, Denies hematochezia, Denies change in bowel habits, Denies nausea and Denies vomiting Denies urinary frequency and Denies dysuria Musc Reports arthralgias, Denies muscle weakness, Denies numbness and Denies other (frequent falls) Skin/Breast Denies nail changes and Denies rash Neuro Denies Abnormal speech present, Reports dizziness, Denies frequent falls, Denies loss of vision, Denies memory loss, Denies numbness and Denies weakness Psych Reports depression and Denies memory loss Endo Denies fatigue and Reports palpitations Todd/Lymph Reports easy bruising and Reports other (anemia) Aller/Immun Denies wheezing Physical Exam Vital Signs: Last Vital Signs Pulse 94 08/19/24 08:58 BP 120/78 08/19/24 08:58 BMI result Body Mass Index 30.5 Const General: cooperative, comfortable, no acute distress, alert, awake, Physically active and anxious Nutritional Appearance: overweight Orientation/consciousness: patient oriented x3 Limitations: no limitations HEENT Head: Yes normocephalic and Yes atraumatic Neck Neck: Yes trachea midline, Yes supple and Yes no JVD Resp Effort & Inspection: normal respiratory effort Auscultation: clear to auscultation bilaterally Cardio Jugular venous distension: no JVD Palpation: normal PMI Rate: regular rate Rhythm: regular rhythm Heart sounds: S1 normal heart sound present, S2 normal heart sound present, no click, no gallops, no murmurs and no rubs GI Auscultation: normal bowel sounds Skin General skin exam: no rashes or lesions noted Neuro General: patient oriented x3 and no focal motor deficits Speech: No Abnormal speech present Extrem General: Yes no clubbing, cyanosis or edema Psych Appearance: grossly normal Affect: Anxious affect present Office Procedures EKG Details: EKG shows normal sinus rhythm normal EKG with normal axis and normal intervals [id number], Complete Assessment & Plan Assessment & Plan (1) Tachycardia: Code(s): R00.0 - Tachycardia, unspecified Category: Medical Plan: Patient noted to have tachycardia with minimal exertional on by her smart watch. Holter monitor was benign not show any significant inappropriate tachycardic except for short episodes of atrial tachycardia. At this point time this appears to be more anxiety stress related. She is maintaining adequate hydration. Advised her to continue to pursue stress mitigation strategies. I would suggest that she would benefit from general anxiety treatment with meds such as sertraline. Continue carvedilol therapy. Will obtain a treadmill stress test to evaluate for any exercise-induced arrhythmias and evaluate for myocardial ischemia given her multiple risk factors. (2) HTN (hypertension): Code(s): I10 - Essential (primary) hypertension Category: Medical Plan: Hypertension which on today's exam is well optimized on current carvedilol t herapy. We discussed about low-salt diet. Stress mitigation strategies were discussed. Given her significant strong risk factors of cardiovascular disease in the family will suggest her to undergo coronary calcium score in near future to assess for presence of coronary atherosclerosis. Also recommended to have a fasting lipid panel along with high sensitivity C-reactive protein other lipid markers. Follow up in the clinic in 2 months time, sooner p.r.n.. Thank you for allowing me to partake in her care Coding Level of Care Code New Pt Level 4 (88168) Complex EM visit Add On G2211 Diagnoses Tachycardia R00.0 HTN (hypertension) I10 CPT Codes EKG - CPT: 35291-[id number], Complete ([id number])
[2024-08-19 08:58] VITALS: BP 120/78; PULSE 94; BMI 30.5
== END 2024-08-19 09:39 | disposition home or self-care (01) ==
LOC: HO.HCS 08:43
PROVIDERS: PCP Internal Medicine; Visit Provider Internal Medicine Cardiovascular Disease
DX: R00.0 Tachycardia, unspecified (principal); I10 Essential (primary) hypertension
CPT/HCPCS: 93010; 99204

== ENCOUNTER → 2024-08-19 08:42 | Outpatient (BNVA) | payer BC, SELFPAY | PROVIDERS: PCP Internal Medicine; Visit Provider Internal Medicine Cardiovascular Disease | DX: R00.0 Tachycardia, unspecified (principal) | CPT/HCPCS: 93005 ==

== ENCOUNTER → 2024-09-28 08:10 | Outpatient (REF) | payer BC, SELFPAY ==
--- NOTE | 2024-09-28 08:12 | CA_ITS ---
Acquisition Time: 2024-09-28 08:11:08 Total Exercise Time: 00:06:00 Test Indications: Palpitations TACHCARDIA Medications: CARVEDILOL CYCLOBENZAPRINE OMEPRAZOLE Protocol: MC Max HR: 153 BPM 89% of Pred: 171 BPM Max BP: 136/78 mmHG Max Work Load: 7.0 METS Exercise stress test with exercise 6 mins of Mc Protocol, achieving 89% MPHR, with reports of mild SOB, no chest pain, without any arrythmias, with normotensive response to exercise. Without EKG chnages meeting criteria for ischemia. In recovery, breathing returned to baseline. Test reviewed with Dr. Ruiz. Referred By: Wagner Ruiz Electronically Signed By: Simon Garcia
== END ==
LOC: HO.CARD 08:10
PROVIDERS: PCP Internal Medicine; Visit Provider Internal Medicine Cardiovascular Disease
DX: I10 Essential (primary) hypertension (principal); R00.0 Tachycardia, unspecified
CPT/HCPCS: 93017

== ENCOUNTER → 2024-09-28 08:12 | Outpatient (BNV) | payer BC, SELFPAY | PROVIDERS: PCP Internal Medicine | DX: R06.02 Shortness of breath (principal) | CPT/HCPCS: 93016; 93018 ==

== ENCOUNTER 2024-10-29 13:11 | Outpatient (AMB) | payer BC, SELFPAY ==
--- OUTSIDE RECORDS SUMMARY | 2024-10-29 13:23 | XMS_ITS ---
Author Name [facility] Organization Unknown Care Team Organization Name Specialty Phone Email Start Date End Da te [facility] SENAIT DEY Primary Care 02/06/2022
--- OUTSIDE RECORDS SUMMARY | 2024-10-29 13:23 | XMS_ITS | Clinical Summary ---
Author Organization [facility] [address] [place] [address] [place] [address] DERIK Martin [address] Phone Care Team Providers Care Medical Records Assistant Name Role Phone Claus Khan MD Primary Care Provider [phone] Allergies Active Allergy Reactions Criticality Noted Date Comments Gluten 05/03/2016 Levofloxacin 09/16/2015 Other Reaction(s): Rash/Dermatitis Penicillins 02/09/2014 Other Reaction(s): Rash/Dermatitis Sulfa (Sulfonamide Antibiotics) GI intolerance 02/09/2014 Medications pantoprazole (PROTONIX) 40 mg packet 1 Active cetirizine (ZyrTEC) 10 mg tablet Active omeprazole magnesium (PRILOSEC OTC ORAL) Take by mouth. Active acetaminophen (Tylenol Arthritis Pain) 650 mg 8 hr tablet Take 1 tablet (650 mg total) by mouth every 8 (eight) hours if needed (pain). Do not crush, chew, or split. 60 tablet 5 Active carvediloL (COREG) 6.25 mg tablet TAKE 1 TABLET(6.2 5 MG) BY MOUTH TWICE DAILY WITH MEALS 180 tablet 1 5 Active carvediloL (COREG) 6.25 mg tablet Take 1 tablet (6.25 mg total) by mouth 2 (two) times a day with meals. 180 tablet 1 5 10/23/19 25 Discontinued Active Problems Problem Noted Date Diagnosed Date Mixed hyperlipidemia 09/11/2024 Atypical chest pain 02/25/2024 Change in bowel habits 02/25/2024 GERD (gastroesophageal reflux disease) Stress 02/25/2024 Gastroesophageal reflux disease without esophagi tis 12/29/2018 BRCA2 positive 03/21/2016 Anxiety 03/13/2014 Celiac sprue 02/09/2014 Encounters Date Type Department Care Team Description 09/08/2024 8:00 AM EDT Office Visit Adult Medicine [facility] [address] [place] [address] Mauro Emmanuel PA Tachycardia (Primary Dx); Palpitation; Polyarthralgia; Screening for lipid disorders; Gastroesophageal reflux disease, unspecified whether esophagitis present; Anxiety 08/21/2024 Telephone [facility] Cardiology [facility] [address] [place] [address] Claus Khan MD Medical Record 08/06/2024 9:00 AM EDT Ancillary Procedure [facility] [address] [place] [address] Tachycardia; Palpitations from Last 3 Months Immunizations Name Administration Dates Next Due Moderna SARS-CoV-2 COVID-19, mRNA, LNP-S, preservative free 06/14/2020,05/16/2020 Tdap Tetanus diptheria acell ular pertussis (Boostrix; Adacel) 7yo and older 05/26/2010 Surgical History Surgery Date Site/Laterality Comments OTHER SURGICAL HISTORY 1999 PROCEDURE: CA EXC TUMOR SOFT TISS FACE&SCALP SUBFASCIAL 2 CM/>; COMMENT: left worship, benign facial tumor ESOPHAGOGASTRODUODENOSCOPY PROCEDURE: CA EGD TRANSORAL BIOPSY SINGLE/MULTIPLE; COMMENT: Performed in 2017 with colonoscopy COLONOSCOPY PROCEDURE: HISTORICAL COLONOSCOPY; COMMENT: [...] drink = 0.6 oz pur e alcohol) Housing Instability Answer Date Recorde d Are you worried that in the next 2 months you may not have stable housing? No 05/07/2024 Food Access & Nutrition Answer Date Rec orded Do you have access to a vari ety of food including fruits and vegetables? Yes 05/07/2024 Access to Healthcare Answer Date Record ed Within the last 3 months, ho w many times did you visit the emergency department for your medical care? 2 05/07/2024 Health Literacy Answer Date Recorded How often do you need to hav e someone help you when you read instructions, pamphlets, or other written material from your doctor or pharmacy? Never 05/07/2024 Caregiver: How often do you need to have someone help you when you read instructions, pamphlets, or other written material from your doctor or pharmacy? Not on file 05/07/2024 Financial Risk Answer Date Recorded How hard is it for you to pa y for the very basics like food, housing, medical care, and air conditioning / heating? Somewhat hard 05/07/2024 Transportation Answer Date Recorded Has the lack of transportati on kept you from meetings, work, or from getting things needed for daily living? No Has the lack of transportati on kept you from medical appointments or from getting medications? No 05/07/2024 Social Isolation Answer Date Recorded How often do you feel lonely or isolated from those around you? Sometimes 05/07/2024 Food Risk Answer Date Recorded Within the past 12 months we worried whether our food would run out before we got money to buy more. Never true 05/07/2024 Within the past 12 months th e food we bought just didn't last and we didn't have money to get more. Never true 05/07/2024 Dependent Care Answer Date Recorded Do you need help finding or paying for care for your loved ones. For example, maternal child nurse or elderly care for an older adult? No 05/07/2024 Education Answer Date Recorded Do you think completing more education or training, like finishing a GED, going to college, or learning a trade, would be helpful for you? No 05/07/2024 Employment and Income Answer Date Recor ded During the last four weeks, have you been actively looking for work? No 05/07/2024 Living Situation Answer Date Recorded What is your living situation? 0 05/07/2024 Comments No Sex and Gender Information Value Date Recorded Sex Assigned at Female 04/16/2024 1:13 PM EST Legal Sex Female 8:48 AM EST Gender Identity Female 04/16/2024 1:13 PM EST Sexual Orientation Lesbian or Miller 04/16/2024 1: 13 PM EST Obstetrics History Para Term AB IAB SAB Ectopic Multiple Livin g Live Births 0 0 0 0 Last Filed Vital Signs Vital Sign Reading Time Taken Comments Blood Pressure 118/74 09/08/2024 8:02 AM EDT Pulse 88 09/08/2024 8:02 AM EDT Temperature 36.4 C (97.5 F) 09/08/2024 8:02 AM EDT Respiratory Rate 16 09/08/2024 8:02 AM EDT Oxygen Saturation 96% 09/08/2024 8:02 AM EDT Inhaled Oxygen Concentration - - Weight 80.8 kg (178 lb 1.6 oz) 09/08/2024 8:02 A M EDT Height 160 cm (5' 3 ) 09/08/2024 8:02 AM EDT Body Mass Index 31.55 09/08/2024 8:02 AM EDT Plan of Treatment Upcoming Encounters Date Type Department Care Team (Late st Contact Info) Description 03/10/2025 7:30 AM EST Office Visit Adult Medicine [address] [address] Mauro Emmanuel PA [address] [place] [phone] Health Maintenance Due Date Last Done Comments Hepatitis B Vaccines (1 of 3 - 19+ 3-dose series) 1994 Cervical Cancer Screening: Pap Smear 11/28/2018 11/29/2015, 11/29/2015 DTaP,Tdap,and Td Vaccines (2 - Td or Tdap) 05/26/2020 05/26/2010 Colorectal Cancer Screening: Colonoscopy 03/10/2022 HIV Screening 03/10/2022 Hepatitis C Screening 03/10/2022 COVID-19 Vaccine ( season) 2023 04/11/2021, 06/14/2020, 05/16/2020 Influenza Vaccine (#1) 2024 Social Influencers of Health Screening 05/07/2025 05/07/2024 Breast Cancer Screening 06/25/2026 06/26/19, 06/13/2023, 06/11/2022, Additional history exists Cholesterol Screening (Lipid Panel) 09/10/2029 09/10/2024, 01/05/2019 Depression Screening Completed 05/07/2024 HIB Vaccines Aged Out No longer eligi [...] patient's age to complete this topic Meningococcal B Vaccine Aged Out No l onger eligible based on patient's age to complete this topic Pneumococcal Vaccine: Pediatrics (0 to 5 Years) and At-Risk Patients (6 to 49 Years) Aged Out No longer eligible based on patient's age to complete this topic RSV Immunization Patients Under 20 months Aged Out No longer eligible based on patient's age to complete this topic Varicella Vaccines Aged Out No longer eligible based on patient's age to complete this topic Procedures Procedure Name Priority Date/Time Associated Diagnosis Comments EXTERNAL CT REPORT 09/14/2024 BORRELIA BURGDORFERI ANTIBODY Routine 09/10/2024 8:37 AM EDT Polyarthralgia URIC ACID Routine 09/10/2024 8:37 AM EDT Polyarthralgia RHEUMATOID FACTOR Routine 09/10/2024 8:3 7 AM EDT Polyarthralgia GIORGI IFA WITH TITER AND PATTERN Routine 09/10/2024 8:37 AM EDT Polyarthralgia LIPID PANEL WITH REFLEX TO DIRECT LDL Routine 09/10/2024 8:37 AM EDT Screening for lipid disorders BASIC METABOLIC PANEL Routine 09/10/2024 8:37 AM EDT Screening for lipid disorders TRANSTHORACIC ECHOCARDIOGRAM (TTE) COMPLETE Routine 08/06/2024 9:31 AM EDT Tachycardia Palpitations MG MAMMO DIGITAL SCREENING W QASIM BILAT Routine 06/25/2024 7:50 AM EDT Encounter for screening mammogram for breast cancer HM HPV Routine 11/29/2015 from Last 3 Months or Most Recently Relevant to Health Maintenance Results * External CT Report (09/14/2024) Anatomical Region Laterality Modality Computed Tomogra phy us Provider [facility] PROCEDURES Final Result * (ABNORMAL) Lipid panel with reflex to direct LDL (09/10/2024 8:37 AM EDT) Cholesterol 223(H) 0 - 200 mg/dL LAB CHEMISTRY METHOD 09/10/2024 11:29 AM EDT [facility] Triglycerides 226(H) 0 - 150 mg/dL LAB CHEMISTRY METHOD 09/10/2024 11:29 AM EDT [facility] HDL 48 >=40 mg/dL LAB CHEMISTRY METHOD 09/10/2024 11:29 AM EDT [facility] LDL Calculated 130(H) 0 - 100 mg/dL LAB CHEMISTRY METHOD 09/10/2024 11:29 AM EDT [facility] VLDL Cholesterol Keith 45.2 mg/dL LAB CHEMISTRY METHOD 09/10/2024 11:29 AM EDT [facility] Non HDL Chol. (LDL+VLDL) 175(H) <145 mg/dL LAB CHEMISTRY METHOD 09/10/2024 11:29 AM EDT [facility] Chol/HDL Ratio 4.6(H) 0.0 - 4.4 LAB CHEMISTRY METHOD 09/10/2024 11:29 AM EDT [facility] Blood Venous blood specimen / Unknown Venipuncture / Unknown 09/10/2024 8:37 AM EDT 09/10/2024 8:37 AM EDT Mauro Emmanuel [place] LAB BLOOD ORDERABLES Fi nal Result Performing Organization Address City/[facility]/ZIP Co de Phone Number [facility] [address] [place] [address], * GIORGI IFA with titer and pattern (09/10/2024 8:37 AM EDT) [facility] GIORGI Negative Negative 09/11/2024 3:08 PM EDT [facility] Blood Venous blood specimen / Unknown Venipuncture / Unknown 09/10/2024 8:37 AM EDT 09/10/2024 8:37 AM EDT [facility] BLOOD ORDERABLES Fi nal Result [facility] [address] [place] [address], [place] [phone] * Borrelia burgdorferi antibody (09/10/2024 8:37 AM EDT) [facility] Lyme Ab Negative Negative LAB CHEMISTRY METHOD 09/10/2024 12:34 PM EDT [facility] Comment: No laboratory evidence of infection with B. burgdorferi (Lyme disease). Negative results may occur in patients recently infected (<=14 days) with B. burgdorferi. If recent infection is suspected, repeat testing on a new sample collected in 7- 14 days is recommended. Blood Venous blood specimen / Unknown Venipuncture / Unknown 09/10/2024 8:37 AM EDT 09/10/2024 8:37 AM EDT [facility] BLOOD ORDERABLES Fi nal Result [facility] [address] [place] [address], [place] [phone] * Rheumatoid factor (09/10/2024 8:37 AM EDT) [facility] Rheumatoid Factor 12.0 <15.0 I Unit/mL LAB CHEMISTRY METHOD 09/10/2024 11:26 AM EDT [facility] Blood Venous blood specimen / Unknown Venipuncture / Unknown 09/10/2024 8:37 AM EDT 09/10/2024 8:37 AM EDT [facility] BLOOD ORDERABLES Fi nal Result [facility] [address] [place] [address], [place] [phone] * Uric acid (09/10/2024 8:37 AM EDT) [facility] Uric Acid 6.5 3.1 - 7.8 mg/dL LAB CHEMISTRY METHOD 09/10/2024 11:26 AM EDT [facility] Blood Venous blood specimen / Unknown Venipuncture / Unknown 09/10/2024 8:37 AM EDT 09/10/2024 8:37 AM EDT Mauro BELCHER LAB BLOOD ORDERABLES Fi nal Result [facility] [address] [place] [address], [place] [phone] * Basic metabolic panel (09/10/2024 8:37 AM EDT) Sodium 141 133 - 145 mmol/L LAB CHEMISTRY METHOD 09/10/2024 11:26 AM [facility] Potassium 4.2 3.5 - 5.5 mmol/L LAB CHEMISTRY METHOD 09/10/2024 11:26 AM [facility] Chloride 106 96 - 110 mmol/L LAB CHEMISTRY METHOD 09/10/2024 11:26 AM [facility] CO2 27 21 - 32 mmol/L LAB CHEMISTRY METHOD 09/10/2024 11:26 AM [facility] Anion Gap 8 3 - 11 LAB CHEMISTRY METHOD 09/10/2024 11:26 AM [facility] Glucose 96 70 - 100 mg/dL LAB CHEMISTRY METHOD 09/10/2024 11:26 AM [facility] BUN 15 5 - 25 mg/dL LAB CHEMISTRY METHOD 09/10/2024 11:26 AM [facility] Creatinine 0.98 0.50 - 1.10 mg/dL LAB CHEMISTRY METHOD 09/10/2024 11:26 AM [facility] eGFR 71 >=60 mL/min/1. 73m2 LAB CHEMISTRY METHOD 09/10/2024 11:26 AM [facility] Comment:Calculation based on the Chronic Kidney Disease Epidemiology Collaboration (CKD-EPI) equation refit without adjustment for race. BUN/Creatinine Ratio 15.3 LAB CHEMISTRY METHOD 09/10/2024 11:26 AM [facility] Calcium 9.1 8.5 - 10.5 mg/dL LAB CHEMISTRY METHOD 09/10/2024 11:26 AM EDT [facility] Blood Venous blood specimen / Unknown Venipuncture / Unknown 09/10/2024 8:37 AM EDT 09/10/2024 8:37 AM EDT us Mauro BELCHER LAB BLOOD ORDERABLES Fi nal Result [facility] ([facility] [address] [place] [address], [place] [phone] * (ABNORMAL) TRANSTHORACIC ECHOCARDIOGRAM (TTE) COMPLETE (08/06/2024 9:31 AM EDT) Left Atrium Minor [place] 4.5 cm CV PACS Left Atrium Major [place] 4.4 cm CV PACS LA Area Sys (A2C) 15 cm2 CV PACS LA Area Sys (A4C) 12 cm2 CV PACS LA Volume (BP) 33 mL CV PACS RA Area 10.7 cm2 CV PACS RA 2D Volume 20 mL CV PACS AV Mean Gradient 3 mmHg CV PACS Ao VTI 24.4 cm CV PACS AV Peak Shilo 1.2 m/s CV PACS AV Peak Gradient 6 mmHg CV PACS AV Area Continuity Equation 2.4 cm2 CV PACS AV Area Peak Velocity 2.3 cm2 CV PACS Aortic Sinus Valsalva 2.8 cm CV PACS Ascending Aorta 2.8 cm CV PACS IVC Proximal 1.3 cm CV PACS IVSD 0.8 0.6 - 0.9 cm CV PACS LVIDD 3.9 3.8 - 5.2 cm CV PACS LVIDS 2.1(A) 2.2 - 3.5 cm CV PACS LVOT Diameter 2.0 cm CV PACS LVOT Mean Shilo 0.6 m/s CV PACS LVOT Mean Grad 1 mmHg CV PACS LVOT Peak VTI 18.5 cm CV PACS LVOT Peak Shilo 0.9 m/s CV PACS LVOT Peak Gradient 3 mmHg CV PACS LVPWD 0.8 0.6 - 0.9 cm CV PACS MV E' Tissue Velocity Lateral 14 cm/s CV PACS MV E' Tissue Velocity Septal 9 cm/s CV PACS LVOT Area 3.1 cm2 CV PACS LVOT Stroke Volume 58 mL CV PACS MV Deceleration [place] 3.4 m/s2 CV PACS E Wave Deceleration Time 197 119 - 242 ms CV PACS MV PHT 58 ms CV PACS MV Peak A Shilo 0.81 m/s CV PACS MV Peak E Shilo 0.68 m/s CV PACS MV Area PHT 3.8 cm2 CV PACS PV Acceleration Time 169 ms CV PACS RV Diastolic Basal Dimension 2.8 2.5 - 4.1 cm CV PACS RV S' 11 cm/s CV PACS TAPSE 20 mm CV PACS E/E' Ratio Septal 8 CV PACS E/E' Ratio Averaged 6 CV PACS Relative Wall Thickness ratio 0.41 CV PACS LVOT:AV VTI Index 0.76 CV PACS FS 46 % CV PACS LV Mass 2D 90 g CV PACS LVOT flow 188 mL/s CV PACS AV Velocity Ratio 0.75 CV PACS E/A Ratio 0.8 CV PACS E/E' Ratio Lateral 5 CV PACS BSA 1.85 m2 CV PACS LA Volume Index (BP) 18 mL/m2 CV PACS LVIDD Index 2.17 cm/m2 CV PACS LVIDS Index 1.17 cm/m2 CV PACS LV Mass Index 2D 50 44 - 88 g/m2 CV PACS LVOT Stroke Index 32 mL/m2 CV PACS RA 2D Volume Index 11(A) 15 - 27 mL/m2 CV PACS HERNÁN Index (VTI) 1.32 cm2/m2 CV PACS HERNÁN Index (Pk Shilo) 1.28 cm2/m2 CV PACS Ascending Aorta Index 1.56 cm/m2 CV PACS Est. RA Pressure 3 mmHg CV PACS Anatomical Region Laterality Modality Ultrasound Narrative 08/13/2024 11:11 AM EDT Left ventricle cavity size is normal. Left ventricular systolic function is in the normal range with an ejection fraction of 55-60%. No regional LV wall motion abnormalities noted. Left ventricle wall thickness is normal. Right ventricle cavity is normal. Right ventricular systolic function is normal. The atria are normal in size. No hemodynamically significant valve disease. See remainder of the report for additional findings. Left Ventricle Left ventricle cavity size is normal. Wall thickness is normal. Systolic function is normal with an ejection fraction of 55-60%. There are no regional LV wall motion abnormalities. There is no diastolic dysfunction. Right Ventricle Right ventricle cavity appears normal. Systolic function is normal. Left Atrium Left atrium cavity size is normal. Right Atrium Right atrium cavity is normal. IVC/SVC RA pressures is estimated to be 3 mmHg (IVC diameter <21 mm and decreases >50% during inspiration). Mitral Valve The leaflets are mildly thickened. There is no significant mitral valve regurgitation. There is no evidence of mitral valve stenosis. Tricuspid Valve Tricuspid valve structure is normal. Tricuspid regurgitation is inadequate for estimation of right ventricular systolic pressure. Aortic Valve The aortic valve is trileaflet. There is no regurgitation or stenosis. Pulmonic Valve Pulmonic valve structure is normal. There is trace pulmonic valve regurgitation. Ascending Aorta The aorta appears normal in size. Transverse aorta not well visualized. Pericardium Pericardium appears normal. There is no pericardial effusion. Study Details Overall the study quality was adequate. us Claus Khan MD CV ECHO PROCEDURES Final Result * MG Mammo Digital Screening w Qasim bilat (06/25/2024 7:50 AM EDT) Anatomical Region Laterality Modality Breast Bilateral Mammography 06/25/2024 10:1 4 AM EDT Impressions 06/25/2024 10:16 AM EDT BILATERAL BREASTS: Negative, no evidence of malignancy. Normal interval follow- up is recommended in 12 months. BREAST DENSITY: C - The breasts are heterogeneously dense which may obscure small masses. BI-RADS CATEGORY: 1 - NEGATIVE RECOMMENDATION: Screening bilateral mammogram is recommended in 1 year. Mammo Location: [facility], [address] [place] [address], [id number], . -------- FINAL REPORT -------- Dictated By: Levon Kemp Dictated Date: 06/25/2024 10:14 ET Assigned Physician: Levon Kemp Reviewed and Electronically Signed By: Levon Kemp Signed Date: 06/25/2024 10:16 ET Workstation ID: [id number] Transcribed By: Self Edit Transcribed Date: 06/25/2024 10:14 ET Narrative 06/25/2024 10:16 AM EDT STUDY: Bilateral screening mammography with tomosynthesis and CAD TECHNIQUE: Bilateral full-field digital screening mammography is obtained and read in conjunction with computer-aided detection. Tomosynthesis as well as 2-D C view imaging were obtained. COMPARISON: Comparison made to multiple prior, most recent June 13, 2023, and most remote February 29, 2016. BILATERAL BREASTS: No significant masses, suspicious calcifications or other abnormalities are seen in either breast. Procedure Note Levon Kemp MD - 06/25/2024 STUDY: Bilateral screening mammography with tomosynthesis and CAD TECHNIQUE: Bilateral full-field digital screening mammography is obtainedand read in conjunction with computer-aided detection. Tomosynthesis aswell as 2-D C view imaging were obtained. COMPARISON: Comparison made to multiple prior, most recent June 13, 2023,and most remote February 29, 2016. BILATERAL BREASTS: No significant masses, suspicious calcifications orother abnormalities are seen in either breast. IMPRESSION: BILATERAL BREASTS: Negative, no evidence of malignancy. Normal intervalfollow-up is recommended in 12 months. BREAST DENSITY: C - The breasts are heterogeneously dense which mayobscure small masses. BI-RADS CATEGORY: 1 - NEGATIVE RECOMMENDATION: Screening bilateral mammogram is recommended in 1 year. Mammo Location: [facility], [address] [place] [address], [id number], . -------- FINAL REPORT -------- Dictated By: Levon Kemp Dictated Date: 06/25/2024 10:14 ET Assigned Physician: Levon Kemp Reviewed and Electronically Signed By: Levon Kemp Signed Date: 06/25/2024 10:16 ET Workstation ID: [id number] Transcribed By: Self Edit Transcribed Date: 06/25/2024 10:14 ET Claus Khan MD IMG BI PROCEDURES Final Result * Cervical Cancer Screening: HPV (11/29/2015) Cervical Cancer Screening: HPV Negative, Abstracted us Historical Provider HEALTH MAINTENANCE Final Result from Last 3 Months or Most Recently Relevant to Health Maintenance Insurance [facility] Care Teams Medical Records Assistant Relationship Specialty Start Date End Date Claus Khan MD [address] [place] [id number] PCP - General Internal Medicine 02/03/14
[2024-10-29 13:38] VITALS: BP 116/60; PULSE 72; BMI 30.5
--- NOTE | 2024-10-29 13:38 | A.OFFVIS_ITS ---
Vital Signs 10/29/24 13:38 Height 5 ft 3 in Weight 171 lb 15.369 oz BMI 30.5 BP 116/60 Blood Pressure Location Lt brachial Position Sitting Pulse 72 Pulse Source Pulse Oximeter Intake Visit Reasons: 2 mth s/p ett/ lipids tracey score Allergies Penicillins Allergy (Mild, Verified 05/06/24 01:10) rash Sulfa (Sulfonamide Antibiotics) Allergy (Mild, Verified 05/06/24 01:10) stomach buring Medication List - Last Reconciled 10/29/24 by Simon Garcia NP carvedilol (Coreg) 6.25 mg PO Q12H cyclobenzaprine 10 mg PO BEDTIME ibuprofen 600 mg PO Q6H PRN omeprazole magnesium (Prilosec) 40 mg PO DAILY HPI Comments Details: This is a 49-year-old female patient coming in for a follow-up visit. Patient with a history of hypertension, hyperlipidemia, anxiety, and family history of coronary artery disease. Previously, patient was seen in the office evaluation cardiac health. Patient in the past had a Holter study that showed inappropriate tachycardia with a episodes of atrial tachycardia which was deemed to be more related to anxiety and stress. Patient underwent a recent treadmill stress test and coronary calcium score which she is here to discuss. Today, patient reports feeling well overall and denies any cardiac symptoms of exer tional chest pain, shortness of breath, palpitations, dizziness, orthopnea, PND, leg edema, presyncope, or syncope. Patient states she is compliant with all her medications. Patient does note that she has made a lot of lifestyle modifications where she is staying more active and is eating healthier. [facility] Medical History Left ankle pain Surgical History Hx of excision of tumor of brain meninges Family History Father Lung cancer CAD (coronary artery disease) Mother No problems noted. Sister CAD (coronary artery disease) Brother Stroke Social History Alcohol intake: never Patient Tobacco Use Status: Never used Tobacco Substance Use Type: Marijuana Review of Systems Const Denies weakness ENT Denies dizziness Card Denies chest pain, Denies chest pain with activity, Denies syncope, Denies rapid heart rate, Denies pedal edema, Denies edema, Denies leg edema, Denies lighthead edness, Denies palpitations, Denies dyspnea, Denies dyspnea on exertion and Denies orthopnea Resp Denies cough, Denies dyspnea and Denies dyspnea on exertion GI Denies hematochezia and Denies change in stool character Musc Denies abnormal gait, Denies muscle cramps, Denies muscle weakness, Denies numbness, Denies radiating pain into limb and Denies tingling Neuro Denies abnormal gait, Denies dizziness, Denies syncope, Denies numbness, Denies tingling and Denies weakness Endo Denies palpitations Physical Exam Vital Signs: Last Vital Signs Pulse 72 10/29/24 13:38 BP 116/60 10/29/24 13:38 BMI result Body Mass Index 30.5 Const General: cooperative, healthy appearing, comfortable and no acute distress Orientation/consciousness: patient oriented x3 HEENT Head: Yes normal to inspection Neck Neck: Yes normal visual inspection, Yes trachea midline and Yes supple Chest Chest palpation & inspection: normal inspection of the chest Resp Effort & Inspection: normal respiratory effort Auscultation: clear to auscultation bilaterally, no crackles, no rales, no rhonchi and no wheezes Cardio Jugular venous distension: no JVD Palpation: normal PMI Rate: regular rate Rhythm: regular rhythm Heart sounds: S1 normal heart sound present, S2 normal heart sound present, no click, no gallops, no murmurs and no rubs Peripheral pulses: Peripheral pulses 2+ throughout GI Inspection: Yes normal to inspection Palpation (GI): Soft to palpation Auscultation: normal bowel sounds Skin General skin exam: no rashes or lesions noted Neuro General: patient oriented x3 Extrem General: Yes normal to inspection, No no pedal edema and No calf tenderness Psych Appearance: grossly normal Mental Status: mental status grossly normal Speech and movement: Normal speech and movement present Assessment & Plan Assessment & Plan (1) HTN (hypertension): Code(s): I10 - Essential (primary) hypertension Category: Medical Plan: 09/28/2024-patient underwent a treadmill stress test with moderate workload without any chest pain or EKG changes. 09/28/2024-patient underwent a coronary calcium score which showed no evidence of atherosclerosis. Given above findings, no further imaging indicated at this time. Blood pressure is well-controlled. Continue carvedilol therapy. Advised monitoring blood pressures at home with a goal less than 130/80. Advised to continue on a low-salt diet. (2) Hyperlipidemia: Code(s): E78.5 - Hyperlipidemia, unspecified Category: Medical Plan: As above. Patient's most recent lipid profile showed an elevated LDL at 130. Patient was advised taking [id number] supplements of Fish oil and Garlique. Patient states that she has been making a lot of lifestyle changes and therefore we decided that we would get a repeat lipid profile before starting patient on any medications. Ideally, LDL goal less than 100. Further treatment based on findings. Advised heart healthy diet, regular exercise, losing weight, med compliance, and management of vascular risk factors. This note was generated using voice recognition software. While every effort has been made to ensure accuracy and proper wafer fab technician, there may be occasional errors that could affect the content or meaning of the described symptoms. Coding Level of Care Code Est Pt Level 4 (21497) Complex EM visit Add On G2211 Diagnoses HTN (hypertension) I10 Hyperlipidemia E78.5 Time Spent (min) 30 Comment Time spent in reviewing the chart, test results, assessment, counseling and documentation.
== END 2024-10-29 14:03 | disposition home or self-care (01) ==
LOC: HO.HCS 13:11
PROVIDERS: PCP Internal Medicine
DX: I10 Essential (primary) hypertension (principal); E78.5 Hyperlipidemia, unspecified
CPT/HCPCS: 99214; G2211